=== PATIENT | female | born 1940 | race Caucasian/White ===

== ENCOUNTER 2023-01-02 15:46 | Emergency (ER) | payer MEDICARE, SELFPAY ==
[2023-01-02 16:00] VITALS: BP 95/60; PULSE 86; RESP 18; O2SAT 90; O2SAT 97; BMI 15.6
[2023-01-02 16:03] VITALS: BP 112/54; O2SAT 97
--- NOTE | 2023-01-02 16:06 | PC.NURSE ---
Patient arrived from home via ems. Per ems son reports failure to thrive and has not been eating for a few days. 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 Extensive amount of cradle cap across head. Buttocks intact but with areas of non blanchable redness.
--- NOTE | 2023-01-02 16:07 | PC.NURSE ---
MOLST formprovided by ems signed by son and pcp states dnr, dni, dnh, no dialysis, no artificial hydration,no artificial nutrition
--- NOTE | 2023-01-02 16:39 | PC.NURSE ---
no contact info on file for son
--- NOTE | 2023-01-02 17:43 | PC.NURSE ---
Son stating he is on his way to facility to review his wishes for his mother
--- NOTE | 2023-01-02 18:28 | ED_ITS ---
HPI - General Adult General Chief complaint: Failure to Thrive Stated complaint: FAILURE TO THRIVE Time Seen by Provider: 01/02/23 16:10 Source: family and EMS Mode of arrival: EMS Limitations: other History of Present Illness HPI narrative: Patient comes to emergency room from home for failure to thrive. Patient's son is at bedside, states that for the last 3-4 days, patient has been eating less than usual, occasionally patient accepts eating ice cream. The patient's son states that the patient has been gradually getting more difficult to arouse. Patient's son understands that patient may be at the end of her life, and would like to make her comfort measures only. Patient's son states that in the past, patient used to be in hospice, but she lived for more than 2 years in hospice and it was canceled. Patient states that he is not sure if he would like to home hospice because he would be too hard on him to have his mother at home. Requesting case management consult to restart hospice if possible not home, but is willing to consider home hospice Related Data Allergies Allergy/AdvReac Type Severity Reaction Status Date / Time codeine [CODEINE] Allergy Intermediate FEELS FAINT Unverified 06/08/21 10:53 Sulfa (Sulfonamide Allergy Intermediate RASH Unverified 06/08/21 10:53 Antibiotics) [SULFA (SULFONAMIDE ANTIBIOTICS)] Review of Systems Review of Systems: Yes Unobtainable due to mental condition [facility] Social History Social History (System 06/08/21 @ 10:53 by Marilyn Camargo) Alcohol intake: unknown Smoked in Last 30 Days: No Use of substances other than those prescribed or required for medical reasons: Unable to respond Advance Directives: No Advance Directives Information Provided: No Physical Exam ED Vital Signs: Vital Signs - 24 hr 01/02/23 16:00 01/02/23 16:03 01/02/23 21:08 Respiratory Rate 18 18 Blood Pressure 112/54 L Pulse Oximetry 97 97 Oxygen Delivery Method Room Air Room Air BMI result Body Mass Index 15.6 Const Other: Appearance: Somnolent, barely arousable , cachectic, very weak Eyes: Pupils equal, round and reactive to light. ENT: Pharynx normal. Neck: Normal inspection. Neck supple. No lymph nodes noted. No crepitus CVS: Normal heart rate and rhythm. Pulses normal. Normal S1 and S2 Respiratory: No respiratory distress. Breath sounds normal. No Wheezing. No rales Abdomen: Soft and nontender. No rigidity. No distention. Skin: Patient has seborrheic dermatitis Extremities: No lower extremity edema. No Lacerations. No Rash Neuro: Barely arousable Medical Decision Making Medical Decision Making MDM Narrative: -patient's son at bedside, he was able to feed her a few spoons of ice-cream. -patient very weak. -the son provided us with a MOLST form, DNR, DNI, no IV fluids, requesting to be switched to [facility] and start hospice process tomorrow. -at this time, patient does not seem to be uncomfortable, no need for morphine drip. -case management consult pending -physician observation started at 20:00 -sign-out given to Dr. Khoury Discharge Plan Discharge Clinical Impression: End of life care Patient Disposition: Still a Patient
--- NOTE | 2023-01-02 19:27 | MHC.EDTECH ---
Pt is resting in bed Respirations even and unlabored No distress noted Plan of care is ongoing
[2023-01-02 21:08] VITALS: RESP 18
[2023-01-02 22:29] VITALS: O2SAT 97
--- NOTE | 2023-01-02 22:34 | PC.NURSE ---
Report given to Osvaldo CROUCH and patent transferred to overflow bed 2. Also per encourage ice cream.
[2023-01-02 22:47] VITALS: BP 104/64; PULSE 86; RESP 18; O2SAT 97
--- NOTE | 2023-01-03 05:52 | PC.NURSE ---
Assumed care at 2300. Pt seriously emaciated - sunken cheeks, protruding spine, extremely thin limbs. Very matted hair with significant cradle cap. Pt contracted, attempted passive ROM but unable to extend upper extremities. Unable to assess pain level, barely arousable. Pt repositioned for comfort. Respirations even and unlabored. RR 12. Plan of care ongoing.
[2023-01-03 05:56] VITALS: RESP 12
[2023-01-03 09:23] VITALS: BP 86/51; PULSE 82; RESP 12; TEMP 36.1; O2SAT 95
--- NOTE | 2023-01-03 09:43 | MHC.CM.ED ---
Addendum entered by Faith George 01/03/23 16:25: Received telephone call from Boris. Family has decided to take patient home with hospice. Patient has been active with [facility] in the past and is requesting referral to that agency. Referral made via [facility]. [facility] will not be able to admit patient until the end of the week. Boris aware and agreeable. Jihan LARES booked for 530pm. [facility] with chart. Patient, Lyly Escalante RN and Bouchra CAMEJO aware. Original Note: Received case management consult from Dr Robles. Michael came to the ER due to Failure to Thrive. Patient is currently comfort measures only. Family is unsure if they want to care for patient at home. Patient does not have [facility] and will not qualify for hospice at a SNF. Spoke with patient's son, Boris via telephone at [phone]. Boris has been caring for his mom 20/11 and would be able to care for her if needed. Boris will speak to his family and discuss privately paying for SNF with hospice or provide hospice care at home. Boris will notify after this is done. Continue to monitor for d/c needs.
--- NOTE | 2023-01-03 09:44 | PC.NURSE ---
Assumed care of patient at 0700. pt is arousable with verbal stimuli. Respirations even and unlabored. No SOB noted. Remains non verbal. Objective cradle cap. BUE contracted. Skin pink, warm, dry. Incontinent of urine moderate amount deep yellow color.
--- NOTE | 2023-01-03 11:02 | PC.NURSE ---
Incontinent of moderate amount of urine, deep yellow. 0% for breakfast. Mid spine protrusion with reddened area and scab. Coccyx and upper L buttocks non blanchable redness noted. Barrier cream applied to buttocks. Pt repositioned.
[2023-01-03 14:00] VITALS: RESP 11
[2023-01-03 17:10] VITALS: RESP 12
== END 2023-01-03 18:34 | disposition home or self-care (01) ==
PROVIDERS: Emergency Provider Emergency Medicine; PCP Internal Medicine
DX: R62.7 Adult failure to thrive (principal); Z51.5 Encounter for palliative care
CPT/HCPCS: 99285